=== PATIENT | male | born 1965 | race Caucasian/White ===

== ENCOUNTER 2021-02-07 17:31 | Emergency (ER) | payer BC ==
[2021-02-07] MEDS ORDERED: LEVOFLOXACIN500 MG PO (21:33)
[2021-02-07] MEDS ORDERED: PERCOCET 5-3251 EACH PO (21:33)
== END 2021-02-07 22:10 | disposition home or self-care (01) ==
LOC: ER1 17:31
DX: N50.812 Left testicular pain (principal); I10 Essential (primary) hypertension; F17.200 Nicotine dependence, unspecified, uncomplicated
CPT/HCPCS: 76870; 81001; 96372; 99284; J0696